=== PATIENT | male | born 1990 | race Caucasian/White ===

== ENCOUNTER 2018-11-30 17:29 | Emergency (ER) | payer MEDICAID ==
[2018-11-30] MEDS: FLUORESCEIN STRIP RIGHT EYE (19:46)
[2018-11-30] MEDS: TETRACAINE 0.5% 4 ML OPH RIGHT EYE (19:46)
== END 2018-11-30 19:53 | disposition home or self-care (01) ==
LOC: FTE 19:53
DX: S05.01XA Injury of conjunctiva and corneal abrasion without foreign body, right eye, initial encounter (principal); F17.210 Nicotine dependence, cigarettes, uncomplicated; X58.XXXA Exposure to other specified factors, initial encounter; Y92.9 Unspecified place or not applicable
CPT/HCPCS: 99283; Z7502